=== PATIENT | male | born 1935 | race Caucasian/White ===

== ENCOUNTER 2017-08-07 09:49 | Emergency (ER) | payer MEDICARE, BC ==
--- NOTE | 2017-08-07 11:03 | RAD ---
PA AND LATERAL CHEST: Indication: Left anterior rib pain status post fall. Comparison: 03-25-13 FINDINGS: Chronic lung changes are stable. Post CABG changes similar. No definite acute osseous abnormality is evident. There are scattered degenerative changes. IMPRESSION: No acute cardiopulmonary abnormality. If there is concern for left sided rib fracture, left rib serie s is recommended. POS: [facility]
== END 2017-08-07 10:40 | disposition home or self-care (01) ==
LOC: BURERS 09:49
DX: S20.212A Contusion of left front wall of thorax, initial encounter (principal); M19.90 Unspecified osteoarthritis, unspecified site; E78.5 Hyperlipidemia, unspecified; M48.00 Spinal stenosis, site unspecified; I10 Essential (primary) hypertension; Z79.899 Other long term (current) drug therapy; W13.0XXA Fall from, out of or through balcony, initial encounter
CPT/HCPCS: 71046

== ENCOUNTER 2017-12-28 19:09 | Emergency (ER) | payer MEDICARE, BC ==
[2017-12-28] MEDS ORDERED: traMADol HCl 50 MG TAB ONE (20:15)
--- NOTE | 2017-12-28 20:20 | RAD ---
LEFT HIP TWO VIEWS: HISTORY: Fall. Pain. COMPARISON: None. FINDINGS: Mild degenerative change. Contour of the femoral head is maintained. No definite fracture. Mild aroldo ne demineralization. Vascular calcifications are present. IMPRESSION: No fracture. The patient is unable to bear weight. Consider CT. POS: [facility]
--- NOTE | 2017-12-28 20:53 | RAD ---
LEFT FEMUR TWO VIEW SERIES: INDICATIONS: Injury of left femur with pain. TECHNIQUE: Four views provided. FINDINGS: There is no evidence of fracture or dislocation. Metallic clips are seen at the distal left thigh. Scattered osseous degenerative change is present, most notable at the left knee. IMPRESSION: No acute osseous abnormality, left femur. Given the degree of osseous irregularity, recommend dedicated views of the left knee for further asse ssment. POS: [facility]
== END 2017-12-28 20:50 | disposition home or self-care (01) ==
LOC: BURERS 19:09
DX: S70.02XA Contusion of left hip, initial encounter (principal); M48.00 Spinal stenosis, site unspecified; E78.5 Hyperlipidemia, unspecified; I10 Essential (primary) hypertension; Z79.899 Other long term (current) drug therapy; X58.XXXA Exposure to other specified factors, initial encounter

== ENCOUNTER 2018-06-10 11:52 | Emergency (ER) | payer MEDICARE, BC ==
[2018-06-10] MEDS ORDERED: Lidocaine 1% w/Epinephrine 1:100K 30 ML VIAL ONE (13:01)
[2018-06-10 13:16] LABS: Bilirubin Negative (Negative); Blood, Urine Trace (Negative); Clarity Clear (Clear); Glucose, Urine (Dipstick) Negative (Negative); Leukocyte Negative (Negative); Nitrite Negative (Negative); Protein, Urine (Dipstick) Negative (Neg-Trace); Specific Gravity, Urine 1.015 (1.005-1.030); Urobilinogen 0.2 mg/dL (0.2-1.0)
[2018-06-10 13:17] LABS: Bacteria/HPF None Seen HPF (None Seen); Crystals/HPF None Seen HPF (Negative); Hyaline Casts/LPF NONE SEEN LPF (0-3 Hyaline); Other Casts/LPF None Seen LPF (0-3 Hyaline); Oval Fat Bodies/HPF None Seen HPF (None Seen); RBC/HPF 0-3 HPF (0-3); Renal Epithelial None Seen HPF (0-3); Sperm/HPF None Seen HPF (None Seen); Squamous Epithelial None Seen HPF (0-3); Transitional Epithelial NONE SEEN HPF (0-3); Trichomonas/HPF None Seen HPF (None Seen); WBC/HPF None Seen HPF (0-3); Yeast-All Forms None Seen HPF (None Seen)
[2018-06-10] MEDS ORDERED: Adacel (T-DAP) 0.5 ML VIAL ONE (13:39)
--- NOTE | 2018-06-10 14:22 | CT ---
NONCONTRAST CT HEAD: DATE: 06/10/2018. HISTORY: Injury after tripping on cement and hit forehead. Laceration. COMPARISON: 05/19/2006. FINDINGS: There is diminished attenuation of the periventricular white matter more prominent in the right parie haley lobe. There is a small area of encephalomalacia present. This is also present on prior exam, al though more prominent on this exam. Findings are likely related to remote area of ischemia and chron ic small-vessel ischemic changes. There is no evidence of an acute cortical infarction, hemorrhage, mass effect, or midline shift. There is mild cerebral volume loss. The ventricular system is normal in size, shape, and position for the degree of sulcal atrophy. Dense vascular calcifications are ag ain seen in the carotid siphons and involving the distal vertebral arteries. Calvarial structures ar e intact without evidence of a fracture. There is laceration seen involving the left supraorbital hare bcutaneous soft tissues with adjacent subcutaneous soft tissue swelling. No radiopaque foreign body is identified. Visualized paranasal sinuses and mastoid air cells are clear. IMPRESSION: 1. No acute intracranial abnormality is demonstrated. 2. 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 3. Left supraorbital scalp soft tissue swelling and laceration. No underlying calvarial fracture is seen. POS: [facility]
== END 2018-06-10 14:29 | disposition home or self-care (01) ==
LOC: BURERS 11:52
DX: S01.81XA Laceration without foreign body of other part of head, initial encounter (principal); S41.112A Laceration without foreign body of left upper arm, initial encounter; W18.30XA Fall on same level, unspecified, initial encounter; I10 Essential (primary) hypertension; E78.5 Hyperlipidemia, unspecified; Z79.899 Other long term (current) drug therapy; Z79.891 Long term (current) use of opiate analgesic
CPT/HCPCS: 12013; 70450; 81003; 81015; 87086; 90471; 90715; J2001

== ENCOUNTER 2020-11-21 17:23 | Emergency (ER) | payer BC, MEDICARE ==
[2020-11-21 18:31] LABS: #Basophils 0.1 thou/uL (0.0-0.2); #Eosinphils 0.2 thou/uL (0.0-0.7); #Monocytes 0.8 thou/uL (0.11-0.59); #Neutrophils 4.9 thou/uL (1.40-6.50); %Basophils 1.1 % (0.0-1.0); %Eosinophils 2.5 % (0.0-10.0); %Lymphocytes 24.8 % (21.0-51.0); %Monocytes 10.3 % (0.0-10.0); %Neutrophils 61.3 % (42.0-75.0); Hemoglobin 15.3 g/dL (14.0-18.0); Mean Corpuscular HGB CONC 33.3 g/dL (32.0-36.0); Mean Corpuscular Hemoglobin 30.8 pg (27.0-31.0); Mean Corpuscular Volume 92.6 fL (78.0-98.0); Mean Platelet Volume 7.2 fL (7.4-10.4); Platelet Count 204 thou/uL (130-400); RBC Distribution Width 12.9 % (11.5-14.5); Red Blood Cell (RBC) Count 4.96 mill/uL (4.70-6.10)
[2020-11-21 18:35] LABS: Prothrombin Time 13.3 sec (12.0-14.7)
[2020-11-21 18:45] LABS: ALT (SGPT) 14 U/L (8-55); AST (SGOT) 28 U/L (5-34); Albumin 3.9 g/dL (3.4-4.8); Alkaline Phosphatase 72 U/L (40-110); Anion Gap 16 mmol/L (10-20); BUN (Urea Nitrogen) 11 mg/dL (8.4-25.7); Bilirubin, Total 0.9 mg/dL (0.2-1.2); Calc. Creatinine Clearance 0 mL/min (70-130); Calcium 8.8 mg/dL (7.8-10.44); Carbon Dioxide 23 mmol/L (23-31); Chloride 107 mmol/L (98-107); Glucose 95 mg/dL (83-110); Potassium 3.8 mmol/L (3.5-5.1); Protein, Total 6.9 g/dL (5.8-8.1); Sodium 142 mmol/L (136-145)
[2020-11-21 19:10] LABS: CKMB 4.6 ng/mL (0-6.6)
[2020-11-21] MEDS ORDERED: Aspirin Chewable 81 MG TAB ONE (19:18)
== END 2020-11-21 19:55 | disposition short-term general hospital (02) ==
LOC: BURERS 17:23
DX: I21.4 Non-ST elevation (NSTEMI) myocardial infarction (principal); E78.5 Hyperlipidemia, unspecified; I10 Essential (primary) hypertension; Z87.891 Personal history of nicotine dependence; Z79.82 Long term (current) use of aspirin; Z79.899 Other long term (current) drug therapy; W18.11XA Fall from or off toilet without subsequent striking against object, initial encounter; Y92.002 Bathroom of unspecified non-institutional (private) residence as the place of occurrence of the external cause
CPT/HCPCS: 70450; 71045; 72125; 80053; 82553; 83880; 84484; 85025; 85610; 93005